=== PATIENT | male | born 1980 | race Caucasian/White ===

== ENCOUNTER 2024-03-30 00:05 | Emergency (ER) | payer SELFPAY ==
[~2024-03-30] VITALS: Ht 175.3 cm; Wt 86.0 kg
[2024-03-30 00:10] VITALS: O2SAT 98
[2024-03-30 00:18] VITALS: BP 154/98; PULSE 101; RESP 16; TEMP 98.5; O2SAT 100
[2024-03-30] MEDS ORDERED: LIDOCAINE HCL/PF 1% 10 MG/ML 5ML VIAL INFIL ONE (00:30)
[2024-03-30] MEDS ORDERED: FLUORESCEIN SODIUM 1MG/STRIP EACHEYE ONE (00:30)
[2024-03-30] MEDS ORDERED: TETANUS, DIPHTHERIA, PERTUSSIS VAC/PF 0.5ML (>10YR OLD) IM ONE (00:30)
[2024-03-30] MEDS ORDERED: BACITRACIN ZINC OINT UDPKT TOP ONE (00:30)
[2024-03-30] MEDS ORDERED: FLUORESCEIN SODIUM 1MG/STRIP EACHEYE NR (02:30)
[2024-03-30] MEDS ORDERED: LIDOCAINE HCL/PF 1% 10 MG/ML 5ML VIAL INFIL NR (02:30)
[2024-03-30] MEDS ORDERED: BACITRACIN ZINC OINT UDPKT TOP NR (02:30)
[2024-03-30] MEDS ORDERED: NAPR-1176 MT (02:43)
[2024-03-30] MEDS: KETOROLAC 15MG/ML VIAL IM ONE (03:00)
[2024-03-30] MEDS: TETANUS, DIPHTHERIA, PERTUSSIS VAC/PF 0.5ML (>10YR OLD) IM ONE (03:00)
== END 2024-03-30 03:22 | disposition home or self-care (01) ==
LOC: ER 00:05
DX: S01.112A Laceration without foreign body of left eyelid and periocular area, initial encounter (principal); I10 Essential (primary) hypertension; R79.1 Abnormal coagulation profile; Z79.1 Long term (current) use of non-steroidal anti-inflammatories (NSAID); Y04.0XXA Assault by unarmed brawl or fight, initial encounter; Y93.89 Activity, other specified; Y92.89 Other specified places as the place of occurrence of the external cause; Y99.8 Other external cause status
CPT/HCPCS: 90715; 12011; 90471; 96372; 99284; J1885; Z7610 ×3